=== PATIENT | female | born 1960 | race Caucasian/White ===

== ENCOUNTER 2018-08-17 22:02 | Emergency (ER) | payer OTHER, MEDICAID, SELFPAY ==
[2018-08-17 22:09] VITALS: BP 157/69; PULSE 82; RESP 14; TEMP 36.7; O2SAT 99; BMI 18.6
[2018-08-17 22:37] VITALS: BP 120/65; PULSE 83; RESP 15; O2SAT 99
--- NOTE | 2018-08-17 22:46 | ED_ITS ---
HPI - Extremity Problem General Chief complaint: Extremity Problem,Nontraumatic Stated complaint: UNABLE TO WALK Time Seen by Provider: 08/17/18 22:10 Source: patient Mode of arrival: ambulatory Limitations: no limitations History of Present Illness HPI Narrative: Patient is a 57-year-old female here for evaluation of bilateral leg cramps. She states that this has been going on for the past several weeks. She has not seen any providers about this. She states that she has known lower back issues. She is not currently on any medications. She states that she has been told that she has fibromyalgia in the past but does not believe this. She states that the cramping is occasional. It causes her to not be able to walk. Resolves on its own. No fevers. Has tried Tylenol Motrin. Related Data Previous Rx's Medication Instructions Recorded gabapentin 300 mg PO BID #60 cap 08/18/18 prednisone 40 mg PO DAILY 5 Days #10 tab 08/18/18 Allergies Allergy/AdvReac Type Severity Reaction Status Date / Time amoxicillin Allergy Verified 08/17/18 22:13 Review of Systems Constitutional Denies fever(s), Denies headache(s) and Reports weakness ENT Ears, Nose, Mouth, and Throat: Denies headache(s) and Reports disequilibrium Cardiovascular Denies chest pain, Denies palpitations and Denies dyspnea Respiratory Denies dyspnea Gastrointestinal Gastrointestinal: Denies abdominal pain, Denies nausea and Denies vomiting Genitourinary Denies dysuria, Denies flank pain, Denies urinary hesitancy and Denies vaginal discharge Musculoskeletal Reports myalgias, Denies arthralgias, Reports muscle cramps and Reports tingling Integumentary/Breasts Denies rash Neurologic Denies headache(s), Reports tingling, Reports paresthesias, Reports disequilibrium and Reports weakness Endocrine Denies palpitations Hematologic/Lymphatic Denies easy bleeding and Denies easy bruising FORMERLY [facility] Medical History Patient denies medical problems (Acute) Social History Smoking Status: Current every day smoker Social History Smoking Status: Current every day smoker Exam Initial Vital Signs Initial Vital Signs: Vital Signs Temperature 98.0 F 08/17/18 22:09 Pulse Rate 82 08/17/18 22:09 Respiratory Rate 14 08/17/18 22:09 Blood Pressure 157/69 H 08/17/18 22:09 Pulse Oximetry 99 08/17/18 22:09 Const General: cooperative, well developed, well groomed and No acute distress Orientation: alert and awake HENMT Head: normal to inspection and normocephalic Resp Effort & Inspection: normal respiratory effort Cardio Rate: regular rate GI Inspection: non-distended Palpation: soft Skin Lesions: no lesions Rashes: no rashes Neuro General: alert, awake and oriented x3 Cognition: normal cognition Speech: speech normal Gait: normal gait Motor: muscle tone normal throughout Sensory Exam: no sensory deficits noted Extrem General: normal to inspection, capillary refill normal, No calf tenderness, No cyanosis, No edema and No pedal edema Right lower extremity: normal to inspection Left lower extremity: normal to inspection Psych Appearance: grossly normal and well kempt Course Orders Ordered: ED Orders 08/17/18 22:58 Basic Metabolic Panel Stat Complete Blood Count AUTO DIFF Stat Creatine Kinase Stat Discontinued Medications Prednisone (Deltasone) 40 mg PO NOW ONE Stop: 08/18/18 00:26 Last Admin: 08/18/18 00:32 Dose: 40 mg Vital Signs - 8 hr 08/17/18 22:09 08/17/18 22:37 08/18/18 00:36 Temperature 98.0 F Pulse Rate 82 83 83 Respiratory Rate 14 15 Blood Pressure 157/69 H 168/71 H Blood Pressure [Left Arm] 120/65 Pulse Oximetry 99 99 97 MDM - Extremity (Nontraumatic) Lab Data Attestation: I reviewed the patient's lab results. Result diagrams: 08/17/18 22:58 08/17/18 22:58 Lab Results 08/17/18 08/17/18 08/17/18 Range/Units 22:58 22:58 22:58 WBC 8.1 (4.5-11.0) X10^3/uL RBC 4.88 (4.0-5.2) X10^6/uL Hgb 14.0 (12.0-16.0) g/dL Hct 40.8 (36-46) % MCV 83.6 (80-100) fL MCH 28.6 (26-34) PG MCHC 34.2 (30-36) % RDW 15.5 H (11.6-14.8) % Plt Count 234 (150-400) X10^3/uL Neut % (Auto) 53.6 (50-75) % Lymph % (Auto) 31.9 (25-40) % [place] % (Auto) 11.8 (3-14) % Eos % (Auto) 2.1 (2-4) % Baso % (Auto) 0.6 (0-2) % Neut # (Auto) 4300 (6649-3360) /uL Lymph # (Auto) 2600 (6011-9706) /uL [place] # (Auto) 1000 H (0-900) /uL Eos # (Auto) 200 (0-450) /uL Baso # (Auto) 0 (0-100) /uL Sodium 137 (137-145) mmol/L Potassium 4.3 (3.4-5.1) mmol/L Chloride 104 (98-107) mmol/L Carbon Dioxide 27 (22-32) mmol/L BUN 34 H (7-17) mg/dL Creatinine 1.20 H (0.52-1.04) mg/dL Estimated GFR 46.1 L (>60) mL/min BUN/Creatinine Ratio 28.3 H (6-22) Glucose 100 (70-100) mg/dL Calcium 8.9 (8.4-10.2) mg/dL Total Creatine Kinase 80 (30-135) U/L MDM Narrative Medical decision making narrative: Patient's labs are unremarkable. She was able to ambulate around the emergency department any problems. Patient is no signs of cauda equina. Has not had any falls. Will hold on radiologic studies for now. Does not appear to have any electrolyte issues. We did discuss the importance of the patient making contact with the primary doctor in the area. She was given the number for the health community resource officer here at the hospital help with this. Was sent home with a short prescription of steroids and also gabapentin. She is given return precautions. She expressed understanding and agreement with plan. Discharge Plan Departure Patient Disposition: Home Clinical Impression: Distal paresthesia Discharge Date/Time: 08/18/18 00:36 Interventions: ED Discharge Assessment Last Done: 08/18/18 00:36 Instructions: DI for Numbness/tingling Activity Restrictions/Additional Instructions: You need to contact the health community resource officer at [phone] to help establish your primary provider here in the area. Take all the medications as directed. Return to the emergency department for any new symptoms. Prescriptions: New prednisone 20 mg tablet 40 mg PO DAILY 5 Days Qty: 10 RF: 0 gabapentin 300 mg capsule 300 mg PO BID Qty: 60 RF: 0
[2018-08-17 23:11] LABS: Add Manual Diff / Slide Review NO; Basophils Absolute Auto 0 /uL (0-100); Basophils Percent Auto 0.6 % (0-2); Eosinophils Absolute Auto 200 /uL (0-450); Eosinophils Percent Auto 2.1 % (2-4); Hematocrit 40.8 % (36-46); Lymphocytes Absolute Auto 2600 /uL (1100-4500); Lymphocytes Percent Auto 31.9 % (25-40); Mean Corpuscular HGB Conc 34.2 % (30-36); Mean Corpuscular Hemoglobin 28.6 PG (26-34); Mean Corpuscular Volume 83.6 fL (80-100); Monocytes Absolute Auto 1000 /uL (0-900); Monocytes Percent Auto 11.8 % (3-14); Neutrophils Absolute Auto 4300 /uL (1500-7000); Neutrophils Percent Auto 53.6 % (50-75); Platelet Count 234 X10^3/uL (150-400); Red Blood Cell Count 4.88 X10^6/uL (4.0-5.2); Red Cell Distribution Width 15.5 % (11.6-14.8); White Blood Cell Count 8.1 X10^3/uL (4.5-11.0)
[2018-08-17 23:19] LABS: BUN Creatinine Ratio 28.3 (6-22); Blood Urea Nitrogen 34 mg/dL (7-17); Calcium 8.9 mg/dL (8.4-10.2); Carbon Dioxide 27 mmol/L (22-32); Chloride 104 mmol/L (98-107); Creatine Kinase 80 U/L (30-135); Estimated Glomerular Filt Rate 46.1 mL/min (>60); Glucose 100 mg/dL (70-100); HEMOLYSIS < 15 (0-50); Potassium 4.3 mmol/L (3.4-5.1); Sodium 137 mmol/L (137-145)
[2018-08-18] MEDS: predniSONE 20 MG TABLET 40 MG PO (00:32)
[2018-08-18 00:36] VITALS: BP 168/71; PULSE 83; O2SAT 97
== END 2018-08-18 00:36 | disposition home or self-care (01) ==
PROVIDERS: Emergency Provider Emergency Medicine
DX: R20.2 Paresthesia of skin (principal)
CPT/HCPCS: 36415; 80048; 82550; 85025; 99282; 99283